=== PATIENT | female | born 1995 | race Caucasian/White ===

== ENCOUNTER 2017-11-27 11:08 | Emergency (ER) | payer SELFPAY ==
[~2017-11-27] VITALS: Ht 172.7 cm; Wt 92.6 kg
[2017-11-27 12:58] LABS: INFLUENZA A NONE DETECTED (NONE DETECT); INFLUENZA B NONE DETECTED (NONE DETECT)
[2017-11-27] MEDS ORDERED: AUGMENTIN875TAB PO (13:04)
[2017-11-27 13:07] VITALS: BP 110/70
== END 2017-11-27 13:05 | disposition home or self-care (01) | DRG 153 ==
LOC: ED 11:08
PROVIDERS: Family Medicine
DX: J32.0 Chronic maxillary sinusitis (principal); F17.210 Nicotine dependence, cigarettes, uncomplicated